=== PATIENT | male | born 1995 | race African-American/Black ===

== ENCOUNTER 2017-07-02 12:36 | Emergency (ER) | payer SELFPAY ==
[~2017-07-02] VITALS: Ht 200.7 cm; Wt 93.0 kg
[2017-07-02 13:09] VITALS: BP 101/61
== END 2017-07-02 13:33 | disposition home or self-care (01) ==
LOC: ER 12:45
DX: J20.9 Acute bronchitis, unspecified (principal); F12.10 Cannabis abuse, uncomplicated